=== PATIENT | female | born 1935 | race Two or more races ===

== ENCOUNTER 2021-07-16 12:45 | Inpatient (IN) | payer MEDICARE ==
[~2021-07-16] VITALS: Ht 162.6 cm; Wt 53.1 kg
[2021-07-16 14:42] LABS: Mean Corpuscular Hemoglobin 29.3 pg (28.0-32.0); Mean Corpuscular Volume 89.8 fL (80.0-100.0); Nucleated Red Blood Cells % 0.1 %; Red Cell Distribution Width 17.9 % (11.8-14.3)
[2021-07-16 14:48] LABS: Albumin 1.6 g/dL (3.4-5.0); Anion Gap 3 (5-15); Blood Urea Nitrogen 43 mg/dL (7-18); Calcium 7.5 mg/dL (8.5-10.1); Carbon Dioxide 32 mmol/L (21-32); Chloride 107 mmol/L (98-107); Glucose 63 mg/dL (74-106); Magnesium 3.9 mg/dL (1.6-2.6); Potassium 4.4 mmol/L (3.5-5.1); Sodium 142 mmol/L (136-145)
[2021-07-16 14:51] LABS: Alanine Aminotransferase < 6 U/L (13-56); Alkaline Phosphatase 97 U/L (45-117); Aspartate Aminotransferase 15 U/L (15-37); BUN/Creatinine Ratio 48.9; Bilirubin, Total 0.2 mg/dL (0.2-1.0); GFR African American 78 mL/min; GFR Non-African American 64 mL/min; Total Protein 5.8 g/dL (6.4-8.2)
[2021-07-16 14:56] LABS: Basophils # (auto) 0 10 ^3/uL (0-0.2); Basophils % (auto) 0.3 % (0.0-2.0); Eosinophils # (auto) 0.1 10 ^3/uL (0-0.8); Eosinophils % (auto) 0.6 % (0.0-7.0); Hematocrit 32.5 % (36.0-46.0); Hemoglobin 10.6 g/dL (12.2-16.2); Lymphocytes # (auto) 2.4 10 ^3/uL (0.4-5.4); Mean Corpuscular Hgb Conc. 32.7 g/dL (32.0-36.0); Monocytes % (auto) 9.7 % (0.0-12.0); Neutrophils # (auto) 6.7 10 ^3/uL (1.6-8.6); Neutrophils % (auto) 65.4 % (37.0-80.0); Red Blood Cells 3.62 10^6/uL (4.0-5.20); White Blood Cell 10.2 10^3/uL (4.4-10.8)
[2021-07-17] MEDS ORDERED: TEMAZEPAM 15 MG CAP PO PRN (03:15)
[2021-07-17] MEDS ORDERED: MORPHINE SULFATE INJECTION 2 MG/ML SYRG IV PRN (03:15)
[2021-07-17] MEDS ORDERED: ACETAMINOPHEN 325 MG TAB PO PRN (03:15)
[2021-07-17] MEDS ORDERED: NITROGLYCERIN 0.4 MG SL TAB SL PRN (03:15)
[2021-07-17] MEDS ORDERED: ONDANSETRON HCL 4 MG/2 ML VIAL IV PRN (03:15)
[2021-07-17] MEDS ORDERED: IOHEXOL 350 MG/ML 100ML IJ ONE (03:42)
[2021-07-17] MEDS ORDERED: DexAMETHasone SOD PHOS 10MG/1ML VIAL INJ IV SCH (04:00)
[2021-07-17] MEDS: AZITHROMYCIN 500MG/ 250ML 250 ML IV SCH (04:14)
[2021-07-17] MEDS: LEVOTHYROXINE SODIUM 25 MCG TAB PO SCH (09:48)
[2021-07-17] MEDS ORDERED: PANTOPRAZOLE 40 MG TAB PO SCH (10:00)
[2021-07-17] MEDS: LOSARTAN POTASSIUM 50 MG TAB PO SCH (10:00)
[2021-07-17 10:29] LABS: INR 1.09 (0.9-1.15); Partial Thromboplastin Time 26.8 sec (23.6-33.0)
[2021-07-17] MEDS: MEMANTINE HCL 5 MG TAB PO SCH ×2 (12:04→21:32)
[2021-07-17] MEDS: ASCORBIC ACID 500 MG TAB PO SCH ×2 (12:04→21:33)
[2021-07-17] MEDS: ZINC SULFATE 220mg CAP or TAB PO SCH (12:05)
[2021-07-17] MEDS: FUROSEMIDE 40 MG TAB PO SCH (12:05)
[2021-07-17] MEDS ORDERED: cefTRIAXone 1GM/50ML D5W 50 ML IV ONE (16:00)
[2021-07-17] MEDS ORDERED: ATROPINE SULF 1 MG/10ml SYR IV PRN (18:30)
[2021-07-18 05:00] VITALS: BP 133/51
[2021-07-18] MEDS: LEVOTHYROXINE SODIUM 25 MCG TAB PO SCH (06:32)
[2021-07-18 07:22] LABS: Basophils # (auto) 0 10 ^3/uL (0-0.2); Basophils % (auto) 0.2 % (0.0-2.0); Eosinophils # (auto) 0.1 10 ^3/uL (0-0.8); Eosinophils % (auto) 0.7 % (0.0-7.0); Hematocrit 28.2 % (36.0-46.0); Hemoglobin 9.4 g/dL (12.2-16.2); Lymphocytes # (auto) 1.9 10 ^3/uL (0.4-5.4); Lymphocytes % (auto) 21.2 % (10.0-50.0); Mean Corpuscular Hemoglobin 29.8 pg (28.0-32.0); Mean Corpuscular Hgb Conc. 33.2 g/dL (32.0-36.0); Mean Corpuscular Volume 89.8 fL (80.0-100.0); Monocytes # (auto) 0.8 10 ^3/uL (0-1.3); Monocytes % (auto) 9.3 % (0.0-12.0); Neutrophils # (auto) 6.2 10 ^3/uL (1.6-8.6); Neutrophils % (auto) 68.6 % (37.0-80.0); Nucleated Red Blood Cells % 0.1 %; Red Blood Cells 3.15 10^6/uL (4.0-5.20); Red Cell Distribution Width 17.5 % (11.8-14.3)
[2021-07-18 07:40] LABS: Albumin 1.4 g/dL (3.4-5.0); Anion Gap 5 (5-15); Blood Urea Nitrogen 31 mg/dL (7-18); Calcium 7.9 mg/dL (8.5-10.1); Carbon Dioxide 35 mmol/L (21-32); Chloride 104 mmol/L (98-107); Glucose 65 mg/dL (74-106); Magnesium 2.9 mg/dL (1.6-2.6); Potassium 4.1 mmol/L (3.5-5.1); Sodium 144 mmol/L (136-145)
[2021-07-18 07:42] LABS: Alanine Aminotransferase < 6 U/L (13-56); Aspartate Aminotransferase 9 U/L (15-37); BUN/Creatinine Ratio 44.9; GFR African American 103 mL/min; GFR Non-African American 85 mL/min
[2021-07-18 07:46] LABS: Alkaline Phosphatase 81 U/L (45-117); Bilirubin, Total 0.1 mg/dL (0.2-1.0)
[2021-07-18 08:00] VITALS: BP 122/75
[2021-07-18] MEDS ORDERED: NIFE1TAB36 PO (09:34)
[2021-07-18] MEDS ORDERED: RISP1TAB63 PO (09:34)
[2021-07-18] MEDS ORDERED: RIVA1DIS3 TOP (09:34)
[2021-07-18] MEDS ORDERED: LORA-483 PO (09:34)
[2021-07-18] MEDS ORDERED: RIVA10TA2 PO (09:34)
[2021-07-18] MEDS ORDERED: IRBE300T43 PO (09:34)
[2021-07-18] MEDS ORDERED: MEMA1TAB5 PO (09:34)
[2021-07-18] MEDS ORDERED: DIVA1TAB59 PO (09:34)
[2021-07-18] MEDS ORDERED: LOSA-39 PO (09:34)
[2021-07-18] MEDS ORDERED: BENZ100C97 PO (09:34)
[2021-07-18] MEDS ORDERED: OXYC-904 PO (09:34)
[2021-07-18] MEDS ORDERED: LEVO75TA6 PO (09:34)
[2021-07-18] MEDS ORDERED: AMOX500C2 PO (09:34)
[2021-07-18] MEDS ORDERED: OXY5T PO (09:44)
[2021-07-18] MEDS ORDERED: ZOLP5TAB5 PO (09:45)
[2021-07-18] MEDS ORDERED: DOCU100T15 PO (09:45)
[2021-07-18] MEDS ORDERED: CALC-473 PO (09:46)
[2021-07-18] MEDS: ZINC SULFATE 220mg CAP or TAB PO SCH (10:19)
[2021-07-18] MEDS: LOSARTAN POTASSIUM 50 MG TAB PO SCH (10:22)
[2021-07-18] MEDS: FUROSEMIDE 40 MG TAB PO SCH (10:23)
[2021-07-18] MEDS: MEMANTINE HCL 5 MG TAB PO SCH ×2 (10:24→21:16)
[2021-07-18] MEDS: ASCORBIC ACID 500 MG TAB PO SCH ×2 (10:24→21:17)
[2021-07-18] MEDS: cefTRIAXone 1GM/50ML D5W 50 ML IV SCH (10:25)
[2021-07-18] MEDS: AZITHROMYCIN 500MG/ 250ML 250 ML IV SCH (11:15)
[2021-07-18 13:00] VITALS: BP 139/93
[2021-07-18 17:55] LABS: % Iron Saturation 33.1 % (15-50)
[2021-07-18] MEDS: RIVAROXABAN 10 MG TAB PO SCH (19:45)
[2021-07-18 20:00] VITALS: BP 145/67
[2021-07-19] MEDS: LEVOTHYROXINE SODIUM 25 MCG TAB PO SCH (06:22)
[2021-07-19 06:47] LABS: Hematocrit 27.4 % (36.0-46.0); Hemoglobin 9.1 g/dL (12.2-16.2)
[2021-07-19 08:00] VITALS: BP 128/80
[2021-07-19] MEDS: cefTRIAXone 1GM/50ML D5W 50 ML IV SCH (09:00)
[2021-07-19] MEDS: MEMANTINE HCL 5 MG TAB PO SCH ×2 (09:17→21:20)
[2021-07-19] MEDS: ZINC SULFATE 220mg CAP or TAB PO SCH (09:17)
[2021-07-19] MEDS: ASCORBIC ACID 500 MG TAB PO SCH ×2 (09:17→21:20)
[2021-07-19] MEDS: LOSARTAN POTASSIUM 50 MG TAB PO SCH (09:18)
[2021-07-19] MEDS: AZITHROMYCIN 500MG/ 250ML 250 ML IV SCH (10:00)
[2021-07-19 12:00] VITALS: BP 127/46
[2021-07-19] MEDS ORDERED: CLINIMIX PER PHARMACY 0 ML IV SCH (15:00)
[2021-07-19 15:04] LABS: Albumin 1.5 g/dL (3.4-5.0); Anion Gap 3 (5-15); Blood Urea Nitrogen 28 mg/dL (7-18); Calcium 7.5 mg/dL (8.5-10.1); Carbon Dioxide 38 mmol/L (21-32); Chloride 100 mmol/L (98-107); Glucose 94 mg/dL (74-106); Sodium 141 mmol/L (136-145)
[2021-07-19 15:07] LABS: Alanine Aminotransferase < 6 U/L (13-56); Alkaline Phosphatase 79 U/L (45-117); Aspartate Aminotransferase 12 U/L (15-37); BUN/Creatinine Ratio 39.4; Bilirubin, Total 0.2 mg/dL (0.2-1.0); GFR African American 100 mL/min; GFR Non-African American 83 mL/min
[2021-07-19 15:41] LABS: Calcium 7.6 mg/dL (8.5-10.1); Phosphorus 3.3 mg/dL (2.5-4.90)
[2021-07-19 15:45] LABS: Pre Albumin 9.6 mg/dL (20.0-40.0)
[2021-07-19 17:00] VITALS: BP 128/56
[2021-07-19] MEDS: RIVAROXABAN 10 MG TAB PO SCH (18:50)
[2021-07-19 19:17] LABS: Urine Bacteria NONE SEEN /hpf (None Seen); Urine Blood 3+ /uL (Negative); Urine Specific Gravity 1.024 (1.001-1.035); Urine WBC 12 /hpf (0 - 5)
[2021-07-19] MEDS ORDERED: AMINO ACID INFUSION IN D10W 1,000 ML IV NR (20:00)
[2021-07-19 22:00] VITALS: BP_SYST 123; BP_DIAS 19; BP_DIAS 40
[2021-07-20] MEDS ORDERED: DEXTROSE (50%) 50ML SYRG IV SCH
[2021-07-20] MEDS: ACCU-CHEK COMFORT CURVE STRIP VI SCH ×4 (00:06→17:58)
[2021-07-20 05:25] VITALS: BP 129/61
[2021-07-20] MEDS: InsuLIN REG 1unit/0.01ml Soln (100units/ml) SC SCH ×4 (05:25→17:58)
[2021-07-20] MEDS: LEVOTHYROXINE SODIUM 100 MCG TAB PO SCH (05:32)
[2021-07-20 08:00] VITALS: BP 145/52
[2021-07-20 08:31] LABS: Chloride 99 mmol/L (98-107); Potassium 3.8 mmol/L (3.5-5.1); Sodium 139 mmol/L (136-145)
[2021-07-20 08:40] LABS: Pre Albumin 9.4 mg/dL (20.0-40.0)
[2021-07-20 08:42] LABS: Alanine Aminotransferase < 6 U/L (13-56); Albumin 1.5 g/dL (3.4-5.0); Alkaline Phosphatase 75 U/L (45-117); Anion Gap 5 (5-15); Aspartate Aminotransferase 11 U/L (15-37); BUN/Creatinine Ratio 41.9; Bilirubin, Total 0.2 mg/dL (0.2-1.0); Blood Urea Nitrogen 26 mg/dL (7-18); Calcium 7.6 mg/dL (8.5-10.1); Carbon Dioxide 35 mmol/L (21-32); GFR African American 117 mL/min; GFR Non-African American 97 mL/min; Glucose 115 mg/dL (74-106); Magnesium 3.1 mg/dL (1.6-2.6); Phosphorus 2.2 mg/dL (2.5-4.90)
[2021-07-20 09:00] VITALS: BP 145/52
[2021-07-20] MEDS: ZINC SULFATE 220mg CAP or TAB PO SCH (09:24)
[2021-07-20] MEDS: MEMANTINE HCL 5 MG TAB PO SCH ×2 (09:25→22:09)
[2021-07-20] MEDS: ASCORBIC ACID 500 MG TAB PO SCH ×2 (09:26→22:09)
[2021-07-20] MEDS: cefTRIAXone 1GM/50ML D5W 50 ML IV SCH (09:26)
[2021-07-20] MEDS: AZITHROMYCIN 500MG/ 250ML 250 ML IV SCH (09:26)
[2021-07-20] MEDS: LOSARTAN POTASSIUM 50 MG TAB PO SCH (09:28)
[2021-07-20 13:00] VITALS: BP 123/82
[2021-07-20] MEDS ORDERED: SODIUM PHOSP 20MEQ(15MMOL) IN NS 100 ML IV ONE (14:00)
[2021-07-20] MEDS ORDERED: FUROSEMIDE 20 MG/2 ML VIAL IV ONE (16:00)
[2021-07-20 16:57] VITALS: BP 169/52
[2021-07-20] MEDS: RIVAROXABAN 10 MG TAB PO SCH (18:32)
[2021-07-20] MEDS ORDERED: AMINO ACID INFUSION IN D10W 1,000 ML IV NR (20:00)
[2021-07-20 22:00] VITALS: BP 132/50
[2021-07-21 05:00] VITALS: BP 141/43
[2021-07-21] MEDS: InsuLIN REG 1unit/0.01ml Soln (100units/ml) SC SCH ×2 (05:49)
[2021-07-21] MEDS: ACCU-CHEK COMFORT CURVE STRIP VI SCH ×2 (05:49)
[2021-07-21] MEDS: LEVOTHYROXINE SODIUM 100 MCG TAB PO SCH (06:22)
[2021-07-21 07:39] LABS: Chloride 95 mmol/L (98-107); Potassium 4.4 mmol/L (3.5-5.1); Sodium 136 mmol/L (136-145)
[2021-07-21 07:41] LABS: Basophils # (auto) 0 10 ^3/uL (0-0.2); Basophils % (auto) 0.4 % (0.0-2.0); Eosinophils # (auto) 0.1 10 ^3/uL (0-0.8); Eosinophils % (auto) 0.9 % (0.0-7.0); Hematocrit 28.7 % (36.0-46.0); Hemoglobin 9.4 g/dL (12.2-16.2); Lymphocytes # (auto) 1.9 10 ^3/uL (0.4-5.4); Lymphocytes % (auto) 23.8 % (10.0-50.0); Mean Corpuscular Hgb Conc. 32.6 g/dL (32.0-36.0); Monocytes # (auto) 0.7 10 ^3/uL (0-1.3); Neutrophils # (auto) 5.3 10 ^3/uL (1.6-8.6); Neutrophils % (auto) 65.9 % (37.0-80.0); Nucleated Red Blood Cells % 0.1 %; Red Blood Cells 3.23 10^6/uL (4.0-5.20); Red Cell Distribution Width 17.9 % (11.8-14.3); White Blood Cell 8.1 10^3/uL (4.4-10.8)
[2021-07-21 08:00] VITALS: BP 127/54
[2021-07-21 08:42] LABS: Alanine Aminotransferase < 6 U/L (13-56); Albumin 1.4 g/dL (3.4-5.0); Alkaline Phosphatase 78 U/L (45-117); Anion Gap 8 (5-15); Aspartate Aminotransferase 20 U/L (15-37); BUN/Creatinine Ratio 37.5; Bilirubin, Total 0.2 mg/dL (0.2-1.0); Blood Urea Nitrogen 24 mg/dL (7-18); Calcium 7.7 mg/dL (8.5-10.1); Carbon Dioxide 33 mmol/L (21-32); GFR African American 113 mL/min; GFR Non-African American 93 mL/min; Glucose 109 mg/dL (74-106); Phosphorus 3.2 mg/dL (2.5-4.90); Total Protein 5.2 g/dL (6.4-8.2)
[2021-07-21 09:00] VITALS: BP 127/54
[2021-07-21] MEDS: cefTRIAXone 1GM/50ML D5W 50 ML IV SCH (09:30)
[2021-07-21] MEDS: MEMANTINE HCL 5 MG TAB PO SCH ×3 (09:52→22:22)
[2021-07-21] MEDS: ZINC SULFATE 220mg CAP or TAB PO SCH (09:53)
[2021-07-21] MEDS: ASCORBIC ACID 500 MG TAB PO SCH ×3 (09:54→22:22)
[2021-07-21] MEDS ORDERED: FUROSEMIDE 20 MG/2 ML VIAL IV SCH (10:00)
[2021-07-21] MEDS: NIFEdipine ER 30 MG TAB PO SCH (10:00)
[2021-07-21] MEDS: LOSARTAN POTASSIUM 50 MG TAB PO SCH (10:00)
[2021-07-21] MEDS: AZITHROMYCIN 500MG/ 250ML 250 ML IV SCH (10:00)
[2021-07-21 13:00] VITALS: BP 124/50
[2021-07-21] MEDS: RIVAROXABAN 10 MG TAB PO SCH (18:00)
[2021-07-21 20:00] VITALS: BP 139/50
[2021-07-21] MEDS ORDERED: AMINO ACID INFUSION IN D10W 1,000 ML IV NR (20:00)
[2021-07-21 22:00] VITALS: BP 139/50
[2021-07-22] MEDS: LEVOTHYROXINE SODIUM 100 MCG TAB PO SCH (07:00)
[2021-07-22 07:54] LABS: Chloride 95 mmol/L (98-107); Potassium 3.9 mmol/L (3.5-5.1); Sodium 135 mmol/L (136-145)
[2021-07-22 08:16] LABS: Alanine Aminotransferase < 6 U/L (13-56); Albumin 1.4 g/dL (3.4-5.0); Alkaline Phosphatase 73 U/L (45-117); Anion Gap 4 (5-15); Aspartate Aminotransferase 11 U/L (15-37); BUN/Creatinine Ratio 43.7; Bilirubin, Total 0.2 mg/dL (0.2-1.0); Blood Urea Nitrogen 31 mg/dL (7-18); Calcium 7.7 mg/dL (8.5-10.1); Carbon Dioxide 36 mmol/L (21-32); GFR African American 100 mL/min; GFR Non-African American 83 mL/min; Glucose 91 mg/dL (74-106); Magnesium 2.9 mg/dL (1.6-2.6); Phosphorus 2.6 mg/dL (2.5-4.90); Total Protein 4.8 g/dL (6.4-8.2)
[2021-07-22 08:42] VITALS: BP 105/41
[2021-07-22] MEDS: LOSARTAN POTASSIUM 50 MG TAB PO SCH (09:32)
[2021-07-22] MEDS: ZINC SULFATE 220mg CAP or TAB PO SCH (09:32)
[2021-07-22] MEDS: cefTRIAXone 1GM/50ML D5W 50 ML IV SCH (09:32)
[2021-07-22] MEDS: NIFEdipine ER 30 MG TAB PO SCH (09:33)
[2021-07-22] MEDS: ASCORBIC ACID 500 MG TAB PO SCH ×2 (09:33→22:00)
[2021-07-22] MEDS: MEMANTINE HCL 5 MG TAB PO SCH ×2 (09:33→22:00)
[2021-07-22] MEDS: AZITHROMYCIN 500MG/ 250ML 250 ML IV SCH (10:00)
[2021-07-22 13:00] VITALS: BP_SYST 105; BP_SYST 111; BP_DIAS 41; BP_DIAS 60
[2021-07-22 16:58] VITALS: BP 114/36
[2021-07-22] MEDS: RIVAROXABAN 10 MG TAB PO SCH (17:35)
[2021-07-22 20:00] VITALS: BP 108/46
[2021-07-22] MEDS ORDERED: AMINO ACID INFUSION IN D10W 1,000 ML IV NR (20:00)
[2021-07-22 22:00] VITALS: BP 108/46
[2021-07-22] MEDS: BACITRACIN TOP OINT 1 UD PKG TOP SCH (22:00)
[2021-07-23 05:00] VITALS: BP 104/69
[2021-07-23] MEDS: LEVOTHYROXINE SODIUM 100 MCG TAB PO SCH (07:00)
[2021-07-23 07:01] LABS: Albumin 1.3 g/dL (3.4-5.0); Anion Gap 5 (5-15); Blood Urea Nitrogen 33 mg/dL (7-18); Calcium 7.6 mg/dL (8.5-10.1); Carbon Dioxide 37 mmol/L (21-32); Chloride 96 mmol/L (98-107); Glucose 93 mg/dL (74-106); Magnesium 2.6 mg/dL (1.6-2.6); Potassium 3.6 mmol/L (3.5-5.1); Sodium 138 mmol/L (136-145)
[2021-07-23 07:05] LABS: Alanine Aminotransferase < 6 U/L (13-56); Alkaline Phosphatase 65 U/L (45-117); Aspartate Aminotransferase 11 U/L (15-37); BUN/Creatinine Ratio 46.5; Bilirubin, Total 0.2 mg/dL (0.2-1.0); GFR African American 100 mL/min; GFR Non-African American 83 mL/min; Phosphorus 2.2 mg/dL (2.5-4.90); Total Protein 4.3 g/dL (6.4-8.2)
[2021-07-23 09:00] VITALS: BP 116/45
[2021-07-23] MEDS: cefTRIAXone 1GM/50ML D5W 50 ML IV SCH (09:29)
[2021-07-23] MEDS: BACITRACIN TOP OINT 1 UD PKG TOP SCH ×2 (10:00→20:42)
[2021-07-23] MEDS ORDERED: POTASSIUM PHOSPHATE 22 MEQ in SODIUM CHL 0.9% 100 ML IV ONE (10:00)
[2021-07-23] MEDS: AZITHROMYCIN 500MG/ 250ML 250 ML IV SCH (10:01)
[2021-07-23] MEDS: ZINC SULFATE 220mg CAP or TAB PO SCH (10:01)
[2021-07-23] MEDS: LOSARTAN POTASSIUM 50 MG TAB PO SCH (10:02)
[2021-07-23] MEDS: ASCORBIC ACID 500 MG TAB PO SCH ×2 (10:03→20:42)
[2021-07-23] MEDS: MEMANTINE HCL 5 MG TAB PO SCH ×2 (10:03→20:42)
[2021-07-23] MEDS: NIFEdipine ER 30 MG TAB PO SCH (10:03)
[2021-07-23 13:00] VITALS: BP 114/51
[2021-07-23 17:00] VITALS: BP 122/50
[2021-07-23] MEDS: RIVAROXABAN 10 MG TAB PO SCH (17:22)
[2021-07-23] MEDS ORDERED: LEV100T PO (17:34)
[2021-07-23] MEDS ORDERED: DOXY-286 PO (17:34)
[2021-07-23] MEDS ORDERED: AMINO ACID INFUSION IN D10W 1,000 ML IV NR (20:00)
[2021-07-23 22:00] VITALS: BP 149/61
[2021-07-24 05:00] VITALS: BP 139/52
[2021-07-24] MEDS: LEVOTHYROXINE SODIUM 100 MCG TAB PO SCH (05:39)
[2021-07-24 08:02] LABS: Albumin 1.4 g/dL (3.4-5.0); Anion Gap 6 (5-15); Blood Urea Nitrogen 28 mg/dL (7-18); Calcium 7.7 mg/dL (8.5-10.1); Carbon Dioxide 35 mmol/L (21-32); Chloride 99 mmol/L (98-107); Glucose 85 mg/dL (74-106); Magnesium 2.9 mg/dL (1.6-2.6); Potassium 3.7 mmol/L (3.5-5.1); Sodium 140 mmol/L (136-145)
[2021-07-24 08:08] LABS: Alanine Aminotransferase < 6 U/L (13-56); Alkaline Phosphatase 72 U/L (45-117); Aspartate Aminotransferase 8 U/L (15-37); BUN/Creatinine Ratio 46.7; Bilirubin, Total 0.1 mg/dL (0.2-1.0); GFR African American 121 mL/min; GFR Non-African American 100 mL/min; Phosphorus 2.4 mg/dL (2.5-4.90); Total Protein 4.7 g/dL (6.4-8.2)
[2021-07-24] MEDS: cefTRIAXone 1GM/50ML D5W 50 ML IV SCH (09:58)
[2021-07-24] MEDS: AZITHROMYCIN 500MG/ 250ML 250 ML IV SCH (09:58)
[2021-07-24] MEDS: ZINC SULFATE 220mg CAP or TAB PO SCH (09:59)
[2021-07-24] MEDS: LOSARTAN POTASSIUM 50 MG TAB PO SCH (10:00)
[2021-07-24] MEDS: MEMANTINE HCL 5 MG TAB PO SCH (10:00)
[2021-07-24] MEDS: ASCORBIC ACID 500 MG TAB PO SCH (10:00)
[2021-07-24] MEDS: NIFEdipine ER 30 MG TAB PO SCH (10:00)
[2021-07-24] MEDS: BACITRACIN TOP OINT 1 UD PKG TOP SCH (10:01)
[2021-07-24] MEDS ORDERED: POTASSIUM PHOSP 22MEQ(15MMOLE) in NS 100 ML IV ONE (13:30)
[2021-07-24] MEDS: RIVAROXABAN 10 MG TAB PO SCH (18:00)
[2021-07-24] MEDS ORDERED: AMINO ACID INFUSION IN D10W 1,000 ML IV NR (20:00)
== END 2021-07-24 17:50 | disposition home or self-care (01) | DRG 177 ==
LOC: EDBD 12:45 → ER 12:45 → TELE 07-17 03:14 → TELE-WESTW 07-17 18:40
PROVIDERS: ADMIT Nurse Practitioner; ATTEND Internal Medicine Pulmonary Disease
PROC: 0W9B3ZZ Drainage of Left Pleural Cavity, Percutaneous Approach (ICD-10-PCS; principal; 2021-07-17)
PROC: 05HA33Z Insertion of Infusion Device into Left Brachial Vein, Percutaneous Approach (ICD-10-PCS; 2021-07-20)
PROC: B54NZZA Ultrasonography of Left Upper Extremity Veins, Guidance (ICD-10-PCS; 2021-07-20)
DX: J69.0 Pneumonitis due to inhalation of food and vomit (principal); E43 Unspecified severe protein-calorie malnutrition; J96.20 Acute and chronic respiratory failure, unspecified whether with hypoxia or hypercapnia; I50.33 Acute on chronic diastolic (congestive) heart failure; F03.90 Unspecified dementia, unspecified severity, without behavioral disturbance, psychotic disturbance, mood disturbance, and anxiety; E03.9 Hypothyroidism, unspecified; D64.9 Anemia, unspecified; I11.0 Hypertensive heart disease with heart failure; K59.00 Constipation, unspecified; E11.42 Type 2 diabetes mellitus with diabetic polyneuropathy; R00.1 Bradycardia, unspecified; I25.10 Atherosclerotic heart disease of native coronary artery without angina pectoris; Z20.822 Contact with and (suspected) exposure to COVID-19; Z68.30 Body mass index [BMI] 30.0-30.9, adult; Z79.01 Long term (current) use of anticoagulants; Z86.711 Personal history of pulmonary embolism; Z99.81 Dependence on supplemental oxygen; Z74.01 Bed confinement status
CPT/HCPCS: 36415; 71045; 71275; 76604; 76942; 80053; 81001; 82040; 82306; 82310; 82962; 83540; 83550; 83735; 83880; 84100; 84443; 84478; 84484; 85014; 85018; 85025; 85379; 85610; 85730; 87086; 87205; 87426; 89051; 93005; 93306; 96365; 96366; 96367; 96375; 97110; 97116; 97163; 97530; G0378; J0696; J1100